=== PATIENT | male | born 1965 | race American Indian/Alaskan Native ===

== ENCOUNTER 2018-06-26 03:05 | Emergency (ER) | payer SELFPAY ==
[2018-06-26 03:18] VITALS: TEMP 98.8
--- NOTE | 2018-06-26 03:49 | ED PDOC ---
Lower Extremity Pain/Injury Time Seen by Provider: 06/26/18 03:16 Chief Complaint (Nursing): Lower Extremity Problem/Injury Chief Complaint (Provider): Leg pain History Per: Patient History/Exam Limitations: no limitations Additional Complaint(s): 52yo male, brought to ER via [facility] for evaluation of chronic bilateral leg pain. Patient was found sleeping in the lobby of [employer] and when police informed patient that he had to exit, he complained of the pain. Upon arrival, patient is sleeping comfortably. Patient is uncooperative and refusing to answer questions; states he "just wants to sleep". Patient denies any trauma. No other complaints. PMD: none Past Medical History Reviewed: Historical Data, Nursing Documentation, Vital Signs Vital Signs: Last Vital Signs Temp 98.8 F 06/26/18 03:15 Pulse 70 06/26/18 03:15 Resp 16 06/26/18 03:15 BP 182/121 H 06/26/18 03:15 Pulse Ox 99 06/26/18 03:15 - Medical History PMH: Chronic Pain (legs) - Family History Family History: States: Unknown Family Hx - Living Arrangements Living Arrangements: Other (homeless) - Allergies Allergies/Adverse Reactions: Allergies Allergy/AdvReac Type Severity Reaction Status Date / Time No Known Allergies Allergy Verified 06/26/18 03:14 Review of Systems ROS Statement: Except As Marked, All Systems Reviewed And Found Negative Musculoskeletal: Positive for: Leg Pain Physical Exam - Reviewed Nursing Documentation Reviewed: Yes Vital Signs Reviewed: Yes - Physical Exam Comments: GENERAL APPEARANCE: Patient awake, alert, uncooperative; poor hygiene noted. ENMT: Mucous membranes moist. Airway patent: (-) stridor. NECK: Supple, FROM HEART AND CARDIOVASCULAR: (-) irregularity CHEST AND RESPIRATORY: (-) rales, (-) rhonchi, (-) wheezes; breath sounds equal. Respirations even and nonlabored. ABDOMEN: Soft, (-) distention, (-) tenderness, (-) guarding. EXTREMITIES: Full ROM of bilateral lower extremities. (-) calf tenderness (-) edema NEURO AND PSYCH: Mental status as above. (-) facial asymmetry. Gait: steady. Speech: clear. - ECG O2 Sat by Pulse Oximetry: 99 (RA) Pulse Ox Interpretation: Normal Medical Decision Making Medical Decision Making: Impression: Chronic pain, malingering Plan: -Re-evaluation -Repeat BP 0400 Repeat BP: 155/92 Patient sleeping comfortably in ED. 0500 On re-evaluation, patient offers no additional symptoms. On exam, patient remains AAOx3, in no acute distress. Lungs clear to auscultation, cardiac RRR, repeat neuro exam shows no focal findings. VSS, stable for discharge. Lab/Diagnostic results d/w the patient in great detail. Diagnosis of chronic pain, malingering d/w the patient. Based on history, exam and diagnostic results, plan will be for outpatient follow up. Patient instructed to follow-up with pmd / referral provided / the clinic in 1- 2 days without fail. Return to the emergency room at any time for any new or worsening symptoms. Patient states he fully agrees with and understands discharge instructions. States that he agrees with the plan and disposition. Verbalized and repeated discharge instructions and plan. I have given the patient opportunity to ask any additional questions. Scribe Attestation: Documented by Carin Hinkle, acting as a scribe for TUCKER Euceda. Provider Scribe Attestation: All medical record entries made by the Scribe were at my direction and personally dictated by me. I have reviewed the chart and agree that the record accurately reflects my personal performance of the history, physical exam, medical decision making, and the department course for this patient. I have also personally directed, reviewed, and agree with the discharge instructions and disposition. Disposition - Clinical Impression Clinical Impression: Chronic pain, Malingering, Elevated blood pressure reading - Patient ED Disposition Is Patient to be Admitted: No Counseled Patient/Family Regarding: Studies Performed, Diagnosis, Need For Followup - Disposition Referrals: [facility] [Outside] Disposition: Routine/Home Disposition Time: 05:00 Condition: FAIR Additional Instructions: The emergency medical care you received today was directed towards the acute presenting symptoms. If you were prescribed any medication, please fill it and give as directed. It may take several days for your symptoms to resolve. Return to the Emergency Department at any time if symptoms worsen, do not improve, or if any other problems arise. Please contact your doctor in 2 days for re-evaluation and follow up / or call one of the physicians/clinics you have been referred to that are listed on the Patient Visit Information form that is included in your discharge packet. Bring any paperwork you were given at discharge with you along with any medications to your follow up visit. Our treatment cannot replace ongoing medical care by a primary care provider (PCP) outside of the emergency department. Instructions: High Blood Pressure in Adults, Chronic Pain, Hypertension (ED) Forms: [facility] (Cymro) Print Language: ROMANIAN - POA Present On Arrival: None
[2018-06-26 05:35] VITALS: BP 152/92; PULSE 64; RESP 18; O2SAT 98
== END 2018-06-26 05:34 | disposition home or self-care (01) ==
LOC: H.ER 03:05
DX: G89.29 Other chronic pain (principal); Z76.5 Malingerer [conscious simulation]; I10 Essential (primary) hypertension